=== PATIENT | male | born 1995 | race Caucasian/White ===

== ENCOUNTER 2019-11-15 13:43 | Inpatient (IN) | payer MEDICAID, MEDICARE, OTHER ==
[~2019-11-15] VITALS: Ht 172.7 cm; Wt 94.8 kg
[2019-11-15] MEDS ORDERED: DILT-32 PO (13:53)
[2019-11-15] MEDS ORDERED: PRED5TAB48 PO (13:53)
[2019-11-15] MEDS ORDERED: TACR1CAP PO ×2 (13:53)
--- NOTE | 2019-11-15 13:55 | NUR ---
PT BIB [facility] C/O HEADACHE, NAUSEA, VOMITING SINCE FRIDAY, WORSENING TODAY. NOTED HTN. RESP EVEN UNLABORED. SKIN WARM DRY. ABD SOFT NON-TENDER. IN ER BED 11.
[2019-11-15] MEDS ORDERED: DILTIAZEM HCL CD 240 MG PO STA (14:04)
[2019-11-15] MEDS ORDERED: DILTIAZEM HCL CD 180 MG PO ONE (14:09)
--- NOTE | 2019-11-15 14:44 | NUR ---
LUDIN DIAZ UNABLE TO DRAW BLOOD. DORITA, GARNETT MACHINE OPERATOR, AT BEDSIDE FOR SECOND ATTEMPT.
[2019-11-15 14:51] LABS: BASOPHILS # (AUTO) 0.1 /CMM (0.0-0.2); BASOPHILS % (AUTO) 0.7 % (0.0-2.0); EOSINOPHILS % (AUTO) 2.9 % (0.0-6.0); HEMATOCRIT 27 % (39-51); HEMOGLOBIN 8.7 g/dL (13.5-17.5); LYMPHOCYTES # (AUTO) 1.2 /CMM (0.8-4.8); LYMPHOCYTES % (AUTO) 16.4 % (20.0-44.0); MEAN CORPUSCULAR HGB CONC 33 g/dl (31.0-36.0); MEAN CORPUSCULAR VOLUME 84 fL (80-96); MONOCYTES # (AUTO) 0.5 /CMM (0.1-1.30); MONOCYTES % (AUTO) 7.3 % (2.0-12.0); NEUTROPHILS # (AUTO) 5.1 /CMM (1.8-8.9); NEUTROPHILS % (AUTO) 72.7 % (43.0-81.0); PLATELET COUNT (AUTO) 218 /CMM (150-450); RED BLOOD CELL COUNT(AUTO) 3.21 MIL/uL (4.5-6.0); WHITE BLOOD COUNT (AUTO) 7.1 K/uL (4.3-11.0)
--- NOTE | 2019-11-15 15:38 | NUR ---
asleep, easily arousable. family at bedside.
[2019-11-15 15:42] LABS: CALCIUM, SERUM 8.6 mg/dL (8.5-10.1); POTASSIUM 5.3 mmol/L (3.5-5.1)
[2019-11-15 15:46] LABS: CREATININE 28.5 mg/dL (0.6-1.3)
[2019-11-15 15:49] LABS: ALBUMIN 3.5 g/dL (3.4-5.0); BILIRUBIN,TOTAL 0.3 mg/dL (0.2-1.0); TOTAL PROTEIN, SERUM 7.8 g/dL (6.4-8.2)
--- NOTE | 2019-11-15 16:31 | NUR ---
CALLED RT FOR ABG
[2019-11-15] MEDS ORDERED: NICARDIPINE HCL 20 MG in IV D5W 192 ML IV STA (16:34)
[2019-11-15] MEDS ORDERED: NICARDIPINE IN DEXTROSE,ISO-OS 200 ML IV ONE (16:34)
--- NOTE | 2019-11-15 16:43 | NUR ---
RT AT BEDSIDE
--- NOTE | 2019-11-15 16:45 | NUR ---
PT NOW BECOMING NOTICEABLY SHORT OF BREATH WITH EXERTION. REPORTS THAT HE HAS HAD THIS SOB FOR A FEW DAYS.
[2019-11-15 16:52] LABS: ABG BASE EXCESS -21.6 mmol/L; ABG OXYGEN SATURATION 97.8 % (92.0-98.5); ABG PCO2 14.2 mmHg (35.0-45.0); ABG PH 7.161 (7.350-7.450); ABG PO2 137.2 mmHg (75.0-100.0); COHb 0.3 % (0.5-1.5); MetHb 0.7 % (0.0-1.5); O2Hb 96.8 % (94.0-97.0); SITE, ABG Right Radial; VENT MODE, BG room air
[2019-11-15] MEDS ORDERED: ONDANSETRON 4 MG TAB.RAPDIS SL ONE (17:00)
[2019-11-15] MEDS ORDERED: HYDROCODONE/APAP 5/325MG 1 EACH TABLET PO ONE (17:00)
--- NOTE | 2019-11-15 17:15 | NUR ---
MARSII PRE OWNED SALES CONSULTANT SUCCESSFULLY STARTED RIGHT EJ 20G AFTER 2 RNS UNABLE TO START IV.
[2019-11-15] MEDS ORDERED: Sodium Bicarbonate 150 MEQ in IV D5W 1,000 ML IV STA (17:25)
--- NOTE | 2019-11-15 17:28 | NUR ---
CALLED DR. ESCAMILLA'S OFFICE FOR NEPHOLOGY FROM [facility].
[2019-11-15] MEDS ORDERED: SODIUM BICARBONATE SYR 50 MEQ/50 ML DISP.SYRIN IV ONE ×2 (17:30)
--- NOTE | 2019-11-15 17:30 | NUR ---
PAGED [facility].
--- NOTE | 2019-11-15 17:30 | NUR ---
PT REQUESTED TO BE PLACED ON O2 DESPITE 100% SPO2. PLACED ON 2L VIA NC. CARDENE DRIP STARTED AT 5MG/HR.
[2019-11-15] MEDS ORDERED: LIDOCAINE 2% JEL UROJET 10 ML MM ONE ×2 (17:33→18:00)
[2019-11-15] MEDS ORDERED: SODIUM BICARBONATE SYR 50 MEQ/50 ML DISP.SYRIN ONE (17:33)
--- NOTE | 2019-11-15 17:39 | NUR ---
VU CATHETER STARTED BY DIMAS SWANSON PER DR PHIPPS WITH VERBAL ORDER FOR UROJET 10ML
--- NOTE | 2019-11-15 17:45 | NUR ---
SODIUM BICARB DRIP AND CARDENE DRIP ARE NOT IV COMPATIBLE. PT VERTY HARD STICK. CALLED NURSING SCUDDING INSPECTOR FOR PICC LINE, PER . PER MENA NURSING SCUDDING INSPECTOR NO PICC NURSE UNTIL 190. AWARE.
[2019-11-15] MEDS ORDERED: ONDANSETRON 4 MG TAB.RAPDIS ONE (18:12)
[2019-11-15] MEDS ORDERED: HYDROCODONE/APAP 5/325MG 1 EACH TABLET ONE (18:12)
--- NOTE | 2019-11-15 18:21 | NUR ---
CARDENE RATE INCREASED TO 7.5MG/HR
[2019-11-15] MEDS ORDERED: IV 1/2NS 1000 ML 1,000 ML IV PRN (19:02)
--- NOTE | 2019-11-15 19:15 | NUR ---
REPORT RECEIVED FROM HERON MATHEW FOR TYLER
--- NOTE | 2019-11-15 19:16 | NUR ---
PT APPEARS IN GREATER DISTRESS, MORE LABORED BREATHING AND PALE COLOR. APICAL PULSE BOUNDING. PT STATES HIS CHEST FEELS "LIKE I WAS RUNNING". PT 100% O2 ON ROOM AIR BUT O2 REAPPLIED PER PT REQUEST AT 2L VIA NC. DR PHIPPS NOTIFIED AND AT BEDSIDE TO EVALUATE PT.
--- NOTE | 2019-11-15 19:28 | NUR ---
CARDENE RATE DECREASED TO 5MG/HR D/T BP 124/50
[2019-11-15] MEDS ORDERED: MAG HYDROX/AL HYDROX/SIMETH 30 ML UDC PO PRN (19:30)
[2019-11-15] MEDS ORDERED: ONDANSETRON HCL/PF 4 MG/2 ML VIAL IVP PRN (19:30)
[2019-11-15] MEDS ORDERED: MAGNESIUM HYDROXIDE 30 ML UDC PO PRN (19:30)
[2019-11-15] MEDS ORDERED: ACETAMINOPHEN 325 MG TABLET PO PRN (19:30)
[2019-11-15] MEDS ORDERED: Z GUARD REMEDY 2 OZ OINT TP PRN (19:30)
--- NOTE | 2019-11-15 19:37 | NUR ---
PT SIGNED CONSENT FORM FOR PICC
[2019-11-15] MEDS ORDERED: LIDOCAINE 1%-EPI 1:100,000 20 ML VIAL ONE (20:11)
--- NOTE | 2019-11-15 20:41 | NUR ---
CARDENE DRIP STOPPED. BP 115/45
--- NOTE | 2019-11-15 20:56 | NUR ---
PT TRANSFERRED TO ROOM 262 IN STABLE CONDITION W ERT AND RN VIA ACLS TRANSPORT PROTOCOL
[2019-11-15 21:00] VITALS: BP 149/57
[2019-11-15] MEDS ORDERED: MANNITOL 12.5 GM/50 ML VIAL IV ONE (21:00)
--- NOTE | 2019-11-15 21:30 | NUR ---
INVENTORY ASSISTANT NOTE PT RECEIVED A/O X4 AND ABLE TO VERBALIZE NEEDS. ON ROOM AIR WITH SATURATION OF 100% AND ASKING FOR OXYGEN. BREATHING UNLABORED. DENIES PAIN OR HEADACHE AT THIS TIME. CARDENE DRIP RECEIVED OFF. SBP 140-150'S. TELE-ST. RIGHT EJ #20 CLEAN AND PATENT. L FEMORAL PERMACATH IN PLACE. DIALYSIS NURSE AT BEDSIDE. CONSENT SIGNED FOR DIALYSIS. VU CATHETER IN PLACE AND DRAINING BY GRAVITY. FAMILY AT BEDSIDE. CALL LIGHT WITHIN REACH.
[2019-11-15 22:00] VITALS: BP 139/64
[2019-11-15 22:15] VITALS: BP 130/59
[2019-11-15 22:30] VITALS: BP 136/59
[2019-11-15 22:45] VITALS: BP 141/71
[2019-11-15 23:00] VITALS: BP 142/65
[2019-11-16] VITALS (24 sets, daily range): BP systolic 143–181; BP diastolic 73–94
--- NOTE | 2019-11-16 00:30 | NUR ---
COMMUNICATION CONSULTANT NOTE PICC LINE NURSE AT BEDSIDE.
[2019-11-16] MEDS: HYDROCODONE/APAP 5/325MG 1 EACH TABLET PO PRN (03:34)
[2019-11-16 04:44] LABS: BASOPHILS # (AUTO) 0.1 /CMM (0.0-0.2); BASOPHILS % (AUTO) 0.8 % (0.0-2.0); EOSINOPHILS % (AUTO) 1.8 % (0.0-6.0); HEMATOCRIT 24 % (39-51); LYMPHOCYTES # (AUTO) 1.2 /CMM (0.8-4.8); LYMPHOCYTES % (AUTO) 19.6 % (20.0-44.0); MEAN CORPUSCULAR HGB CONC 33 g/dl (31.0-36.0); MEAN CORPUSCULAR VOLUME 84 fL (80-96); MONOCYTES # (AUTO) 0.7 /CMM (0.1-1.30); MONOCYTES % (AUTO) 12.2 % (2.0-12.0); NEUTROPHILS % (AUTO) 65.6 % (43.0-81.0); PLATELET COUNT (AUTO) 207 /CMM (150-450); RED BLOOD CELL COUNT(AUTO) 2.85 MIL/uL (4.5-6.0); WHITE BLOOD COUNT (AUTO) 6.1 K/uL (4.3-11.0)
[2019-11-16 05:09] LABS: CALCIUM, SERUM 8.2 mg/dL (8.5-10.1); MAGNESIUM 2.1 mg/dL (1.8-2.4); PHOSPHORUS 6.1 mg/dL (2.5-4.9)
[2019-11-16 05:10] LABS: CREATININE 19.7 mg/dL (0.6-1.3)
[2019-11-16 05:35] LABS: THYROID STIMULATING HORMONE 1.545 uIU/mL (0.358-3.74)
--- NOTE | 2019-11-16 07:30 | NUR ---
RNOPENING NOTES RECEIVED PATIENT RESTING IN BED, A/O X4, ABLE TP MAKE NEEDS KNOWN. PATIENT IS ON ROOM AIR, SATURATING WELL, NO SIGNS OF DISTRESS NOTED. PATIENT DOES NOT HAVE COMPLAINTS OF PAIN OR DISCOMFORT, ON TELE MONITOR WITH SR, HR IN THE 90S. VU CATHETER IS INTACT, NO URINE NOTED AT THE MOMENT. VITAL SIGNS ARE STABLE, BP IS ELEVATED WITH SYSTOLIC IN THE 160S, MD IS AWARE. NO NEW ORDERS AT THE MOMENT, MD WILL "LOOK INTO IT." MERVAT PICC LINE IS INTACT, PATENT AND FLUSHED WELL, NO S/S OF INFECTION NOTED. PATIENT SAFETY IS MAINTAINED, CALL LIGHT WITHIN REACH, WILL CONTINUE TO MONITOR CLOSELY.
[2019-11-16 08:08] LABS: ABG BASE EXCESS -6.4 mmol/L; ABG OXYGEN SATURATION 88.9 % (92.0-98.5); ABG PCO2 25.2 mmHg (35.0-45.0); ABG PH 7.441 (7.350-7.450); ABG PO2 52.1 mmHg (75.0-100.0); AaDO2 67.5 mmHg; COHb 0.1 % (0.5-1.5); MetHb 0.8 % (0.0-1.5); O2Hb 88.1 % (94.0-97.0); SITE, ABG Right Radial; VENT MODE, BG ROOM AIR
[2019-11-16] MEDS: CLONIDINE HCL 0.1 MG TABLET PO PRN ×2 (08:56→21:27)
--- NOTE | 2019-11-16 11:38 | NUR ---
RN NOTES RECEIVED A CALL FROM ULTRASOUND. PATIENT HAS AN ORDER FOR NEEDLE GUIDED BIOPSY W/ ULTRASOUND. PER US TECH, ORDERED STAT INR, PT, PTT. CONSENT SIGNED BY THE PATIENT AND PLACED INTO THE CHART. EXPLAINED THE PROCEDURE TO THE PATIENT. SAFETY MAINTAINED, CALL LIGHT WITHIN REACH, WILL CONTINUE TO MONITOR.
[2019-11-16] MEDS: NS 0.9% IV SCH (12:08)
[2019-11-16] MEDS: METHYLPREDNISOLONE SOD SUCC IV SCH (12:08)
--- NOTE | 2019-11-16 14:00 | NUR ---
ICU/RECOVERY OPERATOR HELPER OF CARE REPORT GIVEN BY NURSE NOVOA. PT ENDORSED TO ME TO CONTINUE CARE.
--- NOTE | 2019-11-16 14:42 | NUR ---
LEA was informed by transplant case manager Adri regarding family requesting list of psychologists. X RAY DEVELOPER printed out list of psychologists that accept Medicare and provided it t transplant case manager Adri for the pt.
--- NOTE | 2019-11-16 15:30 | NUR ---
ICU/INTERNAL CONSULTANT DIALYSIS TREATMENT STARTED, ON GOING MONITORING.
--- NOTE | 2019-11-16 17:28 | NUR ---
ICU/RN CONSENTS - OBTAINED CONSENTS FOR ULTRASOUND GUIDED AND CT GUIDED NEEDLE BIOPSY OF KIDNEY AND ANESTHESIA/SEDATION OBTAINED FROM PT. ALSO PT WILL BRING HOME MED PROGRAFF FOR AM AND PM DOSES. PHARMACY AWARE.
--- NOTE | 2019-11-16 17:45 | NUR ---
ICU/NETWORK ANALYST - COMPLETED DIALYSIS COMPLETED, REMOVED 1.5L. PT TOLERATED PROCEDURE. MONITORING CONTINUED.
--- NOTE | 2019-11-16 19:30 | NUR ---
ADDING MACHINE MECHANIC NOTES RECEIVED PATIENT IN BED, AWAKE, A/O X4, ABLE TO VERBALIZE NEEDS. PATIENT DENIES ANY PAIN OR DISCOMFORT. BEDSIDE TELEMETRY MONITORING SHOWS SR, HR = 78 BPM. VU CATHETER NOTED PATENT AND INTACT, DRAINING MINIMAL AMOUNT OF PINK TINGED URINE TO BAG. LEFT ARM AV FISTULA WITH +BRUIT/THRILL, LEFT FEMORAL HD CATH INTACT, DRESSING CLEAN AND DRY. MERVAT PICC PATENT AND INTACT, ALL PORTS FLUSHED WITH NS, NOTED WITH GOOD BLOOD RETURN. PLAN OF CARE DISCUSSED WITH THE PATIENT, WHOM VERBALIZES UNDERSTANDING. WILL MONITOR CLOSELY
--- NOTE | 2019-11-16 19:36 | NUR ---
ICU/RN AM SHIFT CLOSING NOTES ALL NEEDS MET. NO ACUTE CHANGE OF CONDITION NOTED SINCE PT WAS ENDORSED TO CONTINUE CARE. PT ENDORSED TO PM NURSE TO CONTINUE CARE. CL WITHIN REACHED AND SAFETY MAINTAINED.
--- NOTE | 2019-11-16 21:00 | NUR ---
APPRENTICE INSTRUMENT TECHNICIAN NOTES FAMILY MEMBERS AT BEDSIDE TO VISIT DELIVER HOME MEDICATION TACROLIMUS. MEDICATION DOCUMENTED PER PROTOCOL AND SENT TO PHARMACY.
[2019-11-16] MEDS: PROGRAF 1 MG PO SCH (21:25)
[2019-11-16] MEDS ORDERED: TACROLIMUS ANHYDROUS 1 MG CAPSULE PO SCH (22:00)
[2019-11-17] VITALS (24 sets, daily range): BP systolic 136–187; BP diastolic 66–102
[2019-11-17] MEDS: CLONIDINE HCL 0.1 MG TABLET PO PRN (02:37)
[2019-11-17 04:51] LABS: BASOPHILS % (AUTO) 0.2 % (0.0-2.0); HEMATOCRIT 24 % (39-51); LYMPHOCYTES # (AUTO) 0.3 /CMM (0.8-4.8); LYMPHOCYTES % (AUTO) 10.6 % (20.0-44.0); MEAN CORPUSCULAR HGB CONC 33 g/dl (31.0-36.0); MEAN CORPUSCULAR VOLUME 83 fL (80-96); MONOCYTES % (AUTO) 1.3 % (2.0-12.0); NEUTROPHILS # (AUTO) 2.6 /CMM (1.8-8.9); NEUTROPHILS % (AUTO) 87.9 % (43.0-81.0); PLATELET COUNT (AUTO) 144 /CMM (150-450); RED BLOOD CELL COUNT(AUTO) 2.92 MIL/uL (4.5-6.0)
[2019-11-17 05:03] LABS: CALCIUM, SERUM 8.8 mg/dL (8.5-10.1); MAGNESIUM 2.2 mg/dL (1.8-2.4); PHOSPHORUS 6.3 mg/dL (2.5-4.9)
[2019-11-17 05:07] LABS: CREATININE 15.9 mg/dL (0.6-1.3)
--- NOTE | 2019-11-17 06:19 | NUR ---
EARTH MOVING MACHINE OPERATOR NOTES BP TRENDING HIGH, LATEST 179/98, DESPITE ADMINISTRATION OF CLONIDINE @ 0230, NEXT DOSE SCHEDULED EARLY 829. DR BARLOW NOTIFIED, WITH ORDER FOR HYDRALAZINE IV 10MG Q6HR FOR BP. WILL ADMINISTER AND MONITOR CLOSELY
[2019-11-17] MEDS: hydrALAZINE HCL IV 20 MG VIAL IV PRN ×2 (06:24→22:00)
--- NOTE | 2019-11-17 07:00 | NUR ---
Received patient asleep in bed. Not in any form of distress. SR no ectopy on monitor technician. On O2 per NC @ 2L min. O2 sat 100%. NPO since midnight for Renal Guided Biopsy today. Also, awaiting bed in [facility] for transfer (possible kidney transplant rejection). Patient is also for hemodialysis today.
--- NOTE | 2019-11-17 07:22 | NUR ---
CADDY PACKER NOTES PATIENT RESTING IN BED, APPEARS COMFORTABLE. BP DOWN TO 154/71, HYDRALAZINE EFFECTIVE. PATIENT NPO SINCE [place], FOR SCHEDULED US AND CT GUIDED NEEDLE BIOPSY OF KIDNEY (TRANSPLANTED). PATIENT ENDORSED TO THE AM SHIFT NURSE FOR CONTINUITY OF CARE
[2019-11-17] MEDS ORDERED: TACROLIMUS ANHYDROUS 1 MG CAPSULE PO SCH (09:00)
[2019-11-17] MEDS ORDERED: methylPREDNISolone SOD SUCC 125 MG/2ML VIAL IV SCH (09:00)
--- NOTE | 2019-11-17 09:21 | NUR ---
WAITING FOR RN TO FIND OUT IF PATIENT WILL BE TRANSFERRED TO [facility] OR WILL STAY HERE. KIDNEY BIOPSY ON HOLD FOR NOW
[2019-11-17] MEDS: DILTIAZEM HCL CD 120 MG PO SCH (09:42)
[2019-11-17] MEDS: NS 0.9% IV SCH (09:43)
[2019-11-17] MEDS: AMLODIPINE BESYLATE 5 MG TABLET PO SCH (09:43)
[2019-11-17] MEDS: METHYLPREDNISOLONE SOD SUCC IV SCH (09:43)
--- NOTE | 2019-11-17 11:09 | NUR ---
Texted Dr. Arce to confirm if renal guided biopsy needs to be done today or it can be done as outpatient procedure because radiology has problem in contacting and holding the pathologist for the said procedure. Also, FRANK Blackman texted earlier at 0910 to clarify about the procedure, she texted back that I should clarify it with Dr Shaffer or Dr. Vizcaino. Patient is awaiting bed at [facility]. For the meantime patient can be transferred to Telemetry unit if stable per FRANK Blackman. Awaiting for Dr. Arce or Dr. Vizcaino to reply.
--- NOTE | 2019-11-17 12:40 | NUR ---
Dr. French spoke with charge nurse Levon Morse and cancelled renal guided biopsy. Procedure [facility] done outpatient [facility].
--- NOTE | 2019-11-17 13:20 | NUR ---
NPO cancelled and renal diet ordered.
[2019-11-17] MEDS: PROGRAF 1 MG PO SCH ×2 (13:38→21:58)
--- NOTE | 2019-11-17 14:00 | NUR ---
Patient downgraded to Telemetry. Report given to Vicki Mina RN with all questions answered.
[2019-11-17] MEDS ORDERED: HEPARIN SODIUM, PORCINE 1000 UNIT/1 ML VIAL IV ONE (18:00)
--- NOTE | 2019-11-17 19:00 | NUR ---
pt remained stale, needs met, diet ordered and dinner provided, report given to rn shift mgr nurse in [place] pt still in ICU awaiting HD to be finished, pt will go to room 113/1. mother at bedside aware.
--- NOTE | 2019-11-17 21:32 | NUR ---
RN OPENING NOTES: Pt transferred from ICU via gurney accompanied by 2 nurses. Pt awake, A&Ox4. Finished dialysis in ICU, 1500mL out. On tele monitor showing sinus rhythm. Has right UA PICC, flushed and patent. Dressing c/d/i. Has left arm AV fistula that does not work and a left femoral HD cath. Has kidd cath, patent and draining pink tinged urine. Patient changed, skin check done, skin intact. On renal diet. Vitals: BP 181/91, P 95, RR 20, SaO2 98%, T 97.9. Hydralazine PRN administered as ordered for SBP > 150. Denies pain at this time. Safety measures in place. Bed in lowest and locked position, side rails up x2, call light within reach. Will continue to monitor.
--- NOTE | 2019-11-17 21:40 | NUR ---
ICU/STRUCTURAL STEEL TRADES WORKER PT WAS TRANSFERRED TO ROOM 113-1, WITH ACLS PRECAUTIONS. 1500ML WAS TAKEN OFF FROM HD.
[2019-11-18] VITALS: BP 157/77
[2019-11-18 04:00] VITALS: BP 153/86
[2019-11-18 06:17] LABS: HEMATOCRIT 25 % (39-51); HEMOGLOBIN 8.4 g/dL (13.5-17.5); LYMPHOCYTES # (AUTO) 0.4 /CMM (0.8-4.8); LYMPHOCYTES % (AUTO) 4.2 % (20.0-44.0); MEAN CORPUSCULAR HGB CONC 34 g/dl (31.0-36.0); MEAN CORPUSCULAR VOLUME 83 fL (80-96); MONOCYTES # (AUTO) 0.2 /CMM (0.1-1.30); MONOCYTES % (AUTO) 2.7 % (2.0-12.0); NEUTROPHILS # (AUTO) 8.1 /CMM (1.8-8.9); NEUTROPHILS % (AUTO) 93.1 % (43.0-81.0); PLATELET COUNT (AUTO) 163 /CMM (150-450); WHITE BLOOD COUNT (AUTO) 8.7 K/uL (4.3-11.0)
[2019-11-18 06:46] LABS: CALCIUM, SERUM 8.8 mg/dL (8.5-10.1); MAGNESIUM 2.2 mg/dL (1.8-2.4); POTASSIUM 4.1 mmol/L (3.5-5.1)
--- NOTE | 2019-11-18 06:58 | NUR ---
RN CLOSING NOTES: Pt resting in bed, A&Ox4. On tele monitor showing sinus rhythm. No respiratory distress noted. No acute changes noted during shift. Has right UA PICC line, patent and flushed. Dressing c/d/i. Has left femoral HD cath and left arm AV fistula. Has kidd cath, patent and draining urine. Safety measures in place. Bed in lowest and locked position, side rails up x2, call light within reach.
[2019-11-18 07:07] LABS: CREATININE 11.8 mg/dL (0.6-1.3)
--- NOTE | 2019-11-18 07:10 | NUR ---
CERTIFIED PERSONAL FINANCE COUNSELOR NOTES RECEIVED PATIENT AOX4 , NOT IN ACUTE DISTRESS , SPO2 OF 100% VIA RA , DENIES SOB , COMPLAINS OF MILD PAIN AT CHEST AREA 12/16 , WILL GIVE PRN PAIN MEDICATIONS , FC DRAINING VIA GRAVITY , MERVAT PICC LINE PATENT AND INTACT , L FEMORAL HD CATH IN PLACE , L ARM AV FISTULA WITH BRUIT AND THRILL , ALL NEEDS ATTENDED , BED ON LOW AND LOCKED POSITION ,SIDE RAILS X2 ,CALL LIGHT WITHIN REACH , WILL CONTINUE TO MONITOR
[2019-11-18 08:00] VITALS: BP 151/78
--- NOTE | 2019-11-18 08:00 | NUR ---
INFANT LEAD TEACHER NOTES SEEN AND EVALUATED BY DR GARCIA , DISCUSSED LABS , PT VS AND STATUS , PENDING [facility] TRANSFER OR DISCHARGE HOME , AWARE
[2019-11-18] MEDS: NS 0.9% IV SCH (08:26)
[2019-11-18] MEDS: METHYLPREDNISOLONE SOD SUCC IV SCH (08:26)
[2019-11-18] MEDS: DILTIAZEM HCL CD 120 MG PO SCH (08:26)
[2019-11-18] MEDS: PROGRAF 1 MG PO SCH ×2 (08:26→21:20)
[2019-11-18] MEDS: AMLODIPINE BESYLATE 5 MG TABLET PO SCH (08:26)
[2019-11-18] MEDS: HYDROCODONE/APAP 5/325MG 1 EACH TABLET PO PRN ×2 (08:32→20:17)
[2019-11-18 12:00] VITALS: BP 140/68
[2019-11-18 16:00] VITALS: BP 133/52
--- NOTE | 2019-11-18 18:53 | NUR ---
LEATHER ETCHER NOTES PATIENT STABLE , AOX4 , NOT IN ACUTE DISTRESS , SPO2 OF 100% VIA RA , NO SOB DISTRESS AT THIS TIME, , FC DRAINING VIA GRAVITY , MERVAT PICC LINE PATENT AND INTACT , L FEMORAL HD CATH IN PLACE , L ARM AV FISTULA WITH BRUIT AND THRILL , ALL NEEDS ATTENDED , BED ON LOW AND LOCKED POSITION ,SIDE RAILS X2 ,CALL LIGHT WITHIN REACH , REORT GIVEN TO FELICE FOR CONTINUITY OF CARE
--- NOTE | 2019-11-18 19:10 | NUR ---
RN OPENING NOTES: Received pt awake in bed A&Ox4. On room air, tolerating well. No respiratory distress noted. Has right upper arm PICC line, patent and flushed, dressing c/d/i. Has left femoral hd cath and left arm av fistula. Has kidd cath, patent and draining urine. Safety measures in place. Bed in lowest and locked position, side rails up x2, call light within reach. Will continue to monitor.
[2019-11-18 20:00] VITALS: BP 149/77
[2019-11-19 04:00] VITALS: BP 147/82
--- NOTE | 2019-11-19 06:51 | NUR ---
RN CLOSING NOTES: Pt resting in bed, A&Ox4. On room air. No respiratory distress noted. No acute changes noted during shift. Right UA PICC flushed and patent. Dressing c/d/i. Has left femoral HD cath and old left arm AV fistula. Nunn patent and draining urine. All meds administered as ordered. No complaints of pain at this time. Safety measures in place. Bed in lowest and locked position, side rails up x2, call light within reach. Will endorse to AM nurse for TYLER.
--- NOTE | 2019-11-19 07:29 | NUR ---
RN OPENING NOTES RECEIVED PATIENT RESTING IN BED, AWAKE, A/OX4, VERBALLY RESPONSIVE AND ABLE TO MAKE NEEDS KNOWN. DENIES ANY PAIN OR DISCOMFORT .ON ROOM AIR, SATURATING WELL, NO SOB/ RESPIRATORY DISTRESS NOTED. NOTED OF L AVF NO SIGNS OF BLEEDING, IV ACCESS ON R UA PICC LINE, INTACT, PATENT AND FLUSHED WELL, ALSO NOTED OF FEMORAL HD CATH, NO BLEEDING NOTE. WITH VU CATHETER, NOTED OF RALF COLOR URINE WITH 50 ML OUTPUT ON THE BAG. SAFETY MEASURES IN PLACE; CALL LIGHT WITHIN REACH, SIDE RAILS UP X2, HOB ELEVATED, BED LOCKED AND IN LOWEST POSITION. WILL CONT TO MONITOR PT CLOSELY.
[2019-11-19 08:00] VITALS: BP 155/95
[2019-11-19] MEDS: PROGRAF 1 MG PO SCH ×2 (08:19→22:03)
[2019-11-19] MEDS: AMLODIPINE BESYLATE 5 MG TABLET PO SCH (08:20)
[2019-11-19] MEDS: DILTIAZEM HCL CD 120 MG PO SCH (08:20)
[2019-11-19] MEDS: METHYLPREDNISOLONE SOD SUCC IV SCH (08:38)
[2019-11-19] MEDS: NS 0.9% IV SCH (08:38)
[2019-11-19 09:07] LABS: HEMATOCRIT 26 % (39-51); HEMOGLOBIN 8.7 g/dL (13.5-17.5); LYMPHOCYTES # (AUTO) 0.4 /CMM (0.8-4.8); LYMPHOCYTES % (AUTO) 4.5 % (20.0-44.0); MEAN CORPUSCULAR HGB CONC 33 g/dl (31.0-36.0); MEAN CORPUSCULAR VOLUME 84 fL (80-96); MONOCYTES # (AUTO) 0.2 /CMM (0.1-1.30); MONOCYTES % (AUTO) 2.2 % (2.0-12.0); NEUTROPHILS % (AUTO) 93.3 % (43.0-81.0); PLATELET COUNT (AUTO) 191 /CMM (150-450); RED BLOOD CELL COUNT(AUTO) 3.13 MIL/uL (4.5-6.0); WHITE BLOOD COUNT (AUTO) 9.6 K/uL (4.3-11.0)
[2019-11-19 09:09] LABS: CALCIUM, SERUM 8.8 mg/dL (8.5-10.1); MAGNESIUM 2.1 mg/dL (1.8-2.4); POTASSIUM 4.3 mmol/L (3.5-5.1)
[2019-11-19] MEDS ORDERED: AMLO5TAB9 PO (13:23)
[2019-11-19] MEDS ORDERED: CLON0.1T14 PO (13:23)
[2019-11-19 16:00] VITALS: BP 154/86
--- NOTE | 2019-11-19 17:45 | NUR ---
pending discharge no bed available in [facility] per cm,nursing sup aware.
--- NOTE | 2019-11-19 19:25 | NUR ---
RN CLOSING NOTES PATIENT IN BED, RESTING COMFORTABLY. DENIES ANY PAIN OR DISCOMFORT AT THE MOMENT. ON ROOM AIR, SATURATING WELL. IN NO APPARENT DISTRESS NOTED. HAD DIALYSIS TODAY TOLERATED WELL, OUTPUT OF 2L. PENDING DC, PER COMMUNITY REPRESENTATIVE STILL WAITING FOR ROOM. KEPT CLEAN AND DRY. ALL NEEDS MET. SAFETY MEASURES IN PLACED, BED IN LOWEST POSITIONED, LOCKED. CALL LIGHT WITHIN REACH. ENDORSED TO PM RN FOR CO. C
[2019-11-19 22:00] VITALS: BP 142/75
[2019-11-20 04:00] VITALS: BP 187/97
[2019-11-20] MEDS: CLONIDINE HCL 0.1 MG TABLET PO PRN (04:43)
--- NOTE | 2019-11-20 06:38 | NUR ---
MARTIN/RN PATIENT IS SLEEPING, EASILY AROUSABLE, NO DISTRESS NOTE, BP 133/69 AT THIS TIME, ALL NEEDS ATTENDED AT THIS TIME, WILL CONTINUE TO MONITOR.
[2019-11-20 06:40] VITALS: BP 133/69
[2019-11-20 07:25] LABS: HEMATOCRIT 23 % (39-51); HEMOGLOBIN 7.9 g/dL (13.5-17.5); LYMPHOCYTES # (AUTO) 0.4 /CMM (0.8-4.8); LYMPHOCYTES % (AUTO) 7.5 % (20.0-44.0); MEAN CORPUSCULAR HGB CONC 34 g/dl (31.0-36.0); MEAN CORPUSCULAR VOLUME 82 fL (80-96); MONOCYTES # (AUTO) 0.2 /CMM (0.1-1.30); MONOCYTES % (AUTO) 3.8 % (2.0-12.0); NEUTROPHILS % (AUTO) 88.7 % (43.0-81.0); PLATELET COUNT (AUTO) 176 /CMM (150-450); RED BLOOD CELL COUNT(AUTO) 2.85 MIL/uL (4.5-6.0); WHITE BLOOD COUNT (AUTO) 5.6 K/uL (4.3-11.0)
--- NOTE | 2019-11-20 07:30 | NUR ---
patient resting n bed - no s/s of distress- safety precautions in place- received bedside sbar- will continue to monitor report and record
[2019-11-20 07:35] LABS: CALCIUM, SERUM 8.4 mg/dL (8.5-10.1); PHOSPHORUS 6.2 mg/dL (2.5-4.9); POTASSIUM 4.5 mmol/L (3.5-5.1)
[2019-11-20 07:46] LABS: CREATININE 11.2 mg/dL (0.6-1.3)
[2019-11-20 08:00] VITALS: BP_SYST 138; BP_SYST 158; BP_DIAS 78
[2019-11-20] MEDS: METHYLPREDNISOLONE SOD SUCC IV SCH (09:43)
[2019-11-20] MEDS: NS 0.9% IV SCH (09:43)
[2019-11-20] MEDS: AMLODIPINE BESYLATE 5 MG TABLET PO SCH (09:44)
[2019-11-20] MEDS: DILTIAZEM HCL CD 120 MG PO SCH (09:44)
[2019-11-20] MEDS: PROGRAF 1 MG PO SCH ×2 (09:47→22:20)
[2019-11-20] MEDS: HYDROCODONE/APAP 5/325MG 1 EACH TABLET PO PRN (10:44)
--- NOTE | 2019-11-20 11:56 | NUR ---
patient resting in room- no complaints concerns or issues- vitals stable - tolerating diet- safety precautions in place- will continue to monitor report and record
[2019-11-20 16:00] VITALS: BP_SYST 126; BP_SYST 139; BP_DIAS 67; BP_DIAS 68
--- NOTE | 2019-11-20 18:41 | NUR ---
justine has had a restful day- [facility] reached out to get info in regards to discharge summary - requested a fax- as soon as a bed available - he will be transferred-kidd removed- urinating minimal- safety precautions in place- will continue to monitor report and record -provide bedside sbar
--- NOTE | 2019-11-20 19:15 | NUR ---
MS RN NOTES RECEIVED PT IN BED AWAKE AND ABLE TO MAKE NEEDS KNOWN. PT A/O X3. PT DENIES PAIN AT THIS TIME. RESPIRATIONS EVEN AND UNLABORED WITH NO S/S OF ACUTE DISTRESS OR SOB NOTED. PT NOTED WITH L AVF NO SIGNS OF BLEEDING, IV ACCESS ON R UA PICC LINE, INTACT, PATENT AND FLUSHED WELL, PAT ALSO WITH FEMORAL HD CATH, NO BLEEDING NOTED. SAFETY MEASURES IN PLACE WITH BED IN LOWEST LOCKED POSITION WITH SIDE RAILS UP X2. CALL LIGHT WITHIN REACH. WILL CONTINUE TO MONITOR.
[2019-11-20 20:00] VITALS: BP 164/89
[2019-11-20] MEDS: ZOLPIDEM TARTRATE 5 MG TABLET PO PRN (23:38)
[2019-11-21] VITALS: BP 144/73
[2019-11-21] MEDS: HYDROCODONE/APAP 5/325MG 1 EACH TABLET PO PRN ×2 (01:11→08:05)
[2019-11-21 04:00] VITALS: BP 143/75
--- NOTE | 2019-11-21 07:20 | NUR ---
MS RN OPENING NOTE PATIENT IN BED RESTING COMFORTABLY. PATIENT IN NO ACUTE DISTRESS. NO SOB NOTED. PATIENT BREATHING IS EVEN AND UNLABORED. PATIENT STATES IN NO PAIN AT THIS TIME. SAFETY PRECAUTIONS IN PLACE. PATIENT BED IS LOCKED AND IN LOWEST POSITION. CALL LIGHT WITHIN REACH. WILL CONTINUE TO MONITOR.
--- NOTE | 2019-11-21 07:30 | NUR ---
MS RN NOTES PT IN BED AWAKE AND ABLE TO MAKE NEEDS KNOWN. PT A/O X3. PT DENIES PAIN AT THIS TIME. RESPIRATIONS EVEN AND UNLABORED WITH NO S/S OF ACUTE DISTRESS OR SOB NOTED THROUGHOUT SHIFT. PT NOTED WITH L AVF NO SIGNS OF BLEEDING, IV ACCESS ON R UA PICC LINE, INTACT, PATENT AND FLUSHED WELL, PAT ALSO WITH FEMORAL HD CATH, NO BLEEDING NOTED. SAFETY MEASURES IN PLACE WITH BED IN LOWEST LOCKED POSITION WITH SIDE RAILS UP X2. CALL LIGHT WITHIN REACH. WILL ENDORSE TO ONCOMING NURSE FOR TYLER.
[2019-11-21 07:31] LABS: BASOPHILS % (AUTO) 0.1 % (0.0-2.0); HEMATOCRIT 26 % (39-51); HEMOGLOBIN 8.6 g/dL (13.5-17.5); LYMPHOCYTES # (AUTO) 0.5 /CMM (0.8-4.8); LYMPHOCYTES % (AUTO) 5.6 % (20.0-44.0); MEAN CORPUSCULAR HGB CONC 33 g/dl (31.0-36.0); MEAN CORPUSCULAR VOLUME 83 fL (80-96); MONOCYTES # (AUTO) 0.3 /CMM (0.1-1.30); MONOCYTES % (AUTO) 3.2 % (2.0-12.0); NEUTROPHILS # (AUTO) 7.8 /CMM (1.8-8.9); NEUTROPHILS % (AUTO) 91.1 % (43.0-81.0); PLATELET COUNT (AUTO) 202 /CMM (150-450); RED BLOOD CELL COUNT(AUTO) 3.14 MIL/uL (4.5-6.0); WHITE BLOOD COUNT (AUTO) 8.6 K/uL (4.3-11.0)
[2019-11-21 07:48] LABS: CALCIUM, SERUM 8.8 mg/dL (8.5-10.1); MAGNESIUM 2.1 mg/dL (1.8-2.4); PHOSPHORUS 7.6 mg/dL (2.5-4.9); POTASSIUM 5.3 mmol/L (3.5-5.1)
[2019-11-21 07:52] LABS: CREATININE 12.8 mg/dL (0.6-1.3)
[2019-11-21 08:00] VITALS: BP 173/92
[2019-11-21] MEDS: AMLODIPINE BESYLATE 5 MG TABLET PO SCH (08:04)
[2019-11-21] MEDS: DILTIAZEM HCL CD 120 MG PO SCH (08:04)
[2019-11-21] MEDS: PROGRAF 1 MG PO SCH ×2 (08:04→21:31)
[2019-11-21 09:30] VITALS: BP 144/79
--- NOTE | 2019-11-21 11:16 | NUR ---
MS RN NOTE BUN 107, CRE 12.8. NILES MARIE MADE AWARE.
--- NOTE | 2019-11-21 14:33 | NUR ---
MS RN NOTE PATIENT TOLERATED HEMODIALYSIS WELL, PER ECHO RN 2L TAKEN OUT.
[2019-11-21 16:00] VITALS: BP 151/85
--- NOTE | 2019-11-21 18:38 | NUR ---
MS RN CLOSING NOTE PATIENT IN BED RESTING COMFORTABLY. PATIENT IN NO ACUTE DISTRESS. NO SOB NOTED. PATIENT BREATHING IS EVEN AND UNLABORED. PATIENT IN NO PAIN AT THIS TIME. PATIENT KEPT CLEAN, DRY, AND COMFORTABLE THROUGHOUT MY SHIFT. NEEDS AND CONCERNS ADDRESSED. SAFETY PRECAUTIONS IN PLACE. PATIENT BED IS LOCKED AND IN LOWEST POSITION. CALL LIGHT WITHIN REACH. WILL ENDORSE CARE TO PM SHIFT FOR TYLER.
--- NOTE | 2019-11-21 19:47 | NUR ---
MS RN OPENING NOTES PATIENT RECEIVED RESTING IN BED A/O X 3. STABLE ON RA WITH BREATHING EVEN AND UNLABORED, NO SOB NOTED. NO SIGNS OF ACUTE DISTRESS. NO COMPLAINTS OF PAIN OR DISCOMFORT. PICC NEETU LOCATED ON MERVAT PATENT AND INTACT, LEFT FEMORAL PERMACATH, AND L UA FISTULA. SAFETY PRECAUTIONS IN PLACE WITH BED IN LOWEST POSITION, CALL LIGHT WITHIN REACH, AND SIDE RAILS UP. WILL CONTINUE TO MONITOR THROUGHOUT THE NIGHT.
[2019-11-21 20:00] VITALS: BP 187/89
[2019-11-21] MEDS: CLONIDINE HCL 0.1 MG TABLET PO PRN (20:27)
--- NOTE | 2019-11-21 20:34 | NUR ---
MS RN NOTES PRN CLONIDING 0.1 MG ADMINISTERED DUE TO BLOOD PRESSURE OF 187/98. WILL CONTINUE TO MONITOR.
[2019-11-21] MEDS: ZOLPIDEM TARTRATE 5 MG TABLET PO PRN (23:28)
[2019-11-22 04:00] VITALS: BP 153/89
[2019-11-22] MEDS: HYDROCODONE/APAP 5/325MG 1 EACH TABLET PO PRN (04:42)
--- NOTE | 2019-11-22 06:25 | NUR ---
MS RN CLOSING NOTES PATIENT RESTING IN BED A/O X 3. STABLE ON RA WITH BREATHING EVEN AND UNLABORED, NO SOB NOTED. NO SIGNS OF ACUTE DISTRESS. NO COMPLAINTS OF PAIN OR DISCOMFORT. PICC NEETU LOCATED ON MERVAT PATENT AND INTACT, LEFT FEMORAL PERMACATH, AND L UA FISTULA. SAFETY PRECAUTIONS IN PLACE WITH BED IN LOWEST POSITION, CALL LIGHT WITHIN REACH, AND SIDE RAILS UP. ALL NEEDS ATTENDED TO. PATIENT KEPT CLEAN AND DRY THROUGHOUT THE NINGHT. WILL ENDORSE TO ONCOMING SHIFT ABOUT TYLER.
--- NOTE | 2019-11-22 07:00 | NUR ---
MS RN OPENING NOTES PATIENT RECEIVED RESTING IN BED A/O X 3. STABLE ON RA WITH BREATHING EVEN AND UNLABORED, NO SOB NOTED. NO SIGNS OF ACUTE DISTRESS. NO COMPLAINTS OF PAIN OR DISCOMFORT. PICC NEETU LOCATED ON MERVAT PATENT AND INTACT, LEFT FEMORAL PERMACATH, AND L UA FISTULA. SAFETY PRECAUTIONS IN PLACE WITH BED IN LOWEST POSITION, CALL LIGHT WITHIN REACH, AND SIDE RAILS UP. WILL CONTINUE TO MONITOR. ALL MEASURES TAKEN TO ENSURE CLIENT SAFETY. FISTULA HAS PALPABLE THRILL AND BRUIT. NO DIALYSIS TODAY. POSSIBLE DISCHARGE TO [facility] TO CONTINUE CARE. AWAITING CALL FROM [facility] BED CONTROL.
[2019-11-22 08:00] VITALS: BP 172/97
[2019-11-22 08:47] LABS: HEMATOCRIT 28 % (39-51); HEMOGLOBIN 9.1 g/dL (13.5-17.5); LYMPHOCYTES # (AUTO) 0.8 /CMM (0.8-4.8); LYMPHOCYTES % (AUTO) 5.9 % (20.0-44.0); MEAN CORPUSCULAR HGB CONC 32 g/dl (31.0-36.0); MEAN CORPUSCULAR VOLUME 82 fL (80-96); MONOCYTES # (AUTO) 1.1 /CMM (0.1-1.30); MONOCYTES % (AUTO) 7.6 % (2.0-12.0); NEUTROPHILS # (AUTO) 12.3 /CMM (1.8-8.9); NEUTROPHILS % (AUTO) 86.5 % (43.0-81.0); PLATELET COUNT (AUTO) 252 /CMM (150-450); RED BLOOD CELL COUNT(AUTO) 3.45 MIL/uL (4.5-6.0); WHITE BLOOD COUNT (AUTO) 14.3 K/uL (4.3-11.0)
[2019-11-22 08:56] LABS: POTASSIUM 4.9 mmol/L (3.5-5.1)
[2019-11-22] MEDS: PROGRAF 1 MG PO SCH ×2 (09:19→21:31)
[2019-11-22 09:20] LABS: CALCIUM, SERUM 8.6 mg/dL (8.5-10.1); MAGNESIUM 2.1 mg/dL (1.8-2.4); PHOSPHORUS 7.7 mg/dL (2.5-4.9)
[2019-11-22] MEDS: DILTIAZEM HCL CD 120 MG PO SCH (09:20)
[2019-11-22] MEDS: AMLODIPINE BESYLATE 5 MG TABLET PO SCH (09:21)
[2019-11-22 09:24] LABS: CREATININE 11.2 mg/dL (0.6-1.3)
--- NOTE | 2019-11-22 13:00 | NUR ---
MS RN NOTES BED CONTROL FROM [facility] CALLED. REPORT GIVEN TO BED CONTROL. NO NEW UPDATES AT THIS TIME ON WHEN DISCHARGE WILL HAPPEN. THIS INFORMATION WAS EXPLAINED TO THE PATIENT.
--- NOTE | 2019-11-22 14:00 | NUR ---
MS RN NOTES REPORT GIVEN TO [facility]PH[facility]Y [facility] AND TRANSPLANT TEAM. RECENT MEDICAL CONDITION PROVIDED, LABS, AND INFORMATION REQUESTED. NO NEW INFORMATION ON BED AVAILABILITY AT [facility]. PATIENT UPDATED WITH THIS INFORMATION.
[2019-11-22 16:00] VITALS: BP 148/77
--- NOTE | 2019-11-22 19:00 | NUR ---
MS RN CLOSING NOTE PATIENT IS IN BED RESTING COMFORTABLY, NO S/S OF DISTRESS, NO NEW ACUTE EVENTS. BED IN LOWEST POSITION, CALL LIGHT WITHIN REACH, ALL MEASURES TAKEN TO ENSURE CLIENT SAFETY. MEDICATIONS GIVEN ORDERED. PATIENT UPDATED ON CURRENT STATUS OF [facility] TRANSFER. ENDORSED TO MILL HAND.
[2019-11-22 20:00] VITALS: BP_SYST 143; BP_SYST 171; BP_DIAS 72; BP_DIAS 92
[2019-11-22] MEDS: hydrALAZINE HCL IV 20 MG VIAL IV PRN (21:31)
--- NOTE | 2019-11-22 21:31 | NUR ---
RN NOTE B/P NOTED 171/92. PRN APRESOLINE 10MG PO GIVEN ORDERED. WILL CONT TO MONITOR. ALL SAFETY MEASURES IN PLACE. Addendum: 11/23/19 at 0628 by ORA HAMMOND RN ERROR IN CHARTING APRESOLINE WAS GIVEN IV NOT PO.
[2019-11-22] MEDS: ZOLPIDEM TARTRATE 5 MG TABLET PO PRN (21:40)
--- NOTE | 2019-11-22 21:40 | NUR ---
RN NOTE PATIENT REQUESTED FOR SLEEPING PILL. PRN AMBIEN 5MG PO GIVEN ORDERED. WILL CONT TO MONITOR FOR EFFECTIVENESS.
--- NOTE | 2019-11-22 22:00 | NUR ---
RN NOTE APRESOLINE NOTED EFFECTIVE B/P NOTED 148/88.
--- NOTE | 2019-11-22 22:40 | NUR ---
RN NOTE PATIENT SLEEPING COMFORTABLY, BREATHING NORMAL NO SOB NOTED. SAFETY MEASURES IN PLACE. CALL LIGHT WITHIN REACH. MEDICATION EFFECTIVE.
--- NOTE | 2019-11-22 23:00 | NUR ---
rn notes patient is reporting of having numbness of both sided face and mouth. MD Anderson notified and new telephone order of stat head ct w/o contrast is in place.order read back and verification has been done. will continue to monitor patient closely.
[2019-11-23 04:00] VITALS: BP 128/75
--- NOTE | 2019-11-23 07:00 | NUR ---
MS RN NOTES RECEIVED PT ON THE BED. A/OX4. ON ROOM AIR WITH NO DISTRESS. LUNGS CLEAR ON AUSCULTATION.NO SOB NOTES. MERVAT PICC LINE IN PLACE AND FLUSHES WELL. LEFT ARM FISTULA IN PLACE. DR. HUGGINS NOTIFIED THAT PT IS STILL C/O NUMBNESS IN MOUTH. BED LOCKED IN THE LOWEST POSITION. CALL LIGHT WITHIN REACH. PLAN OF CARE DISCUSSED WITH PT. WILL CONT TO MONITOR
[2019-11-23 07:25] LABS: BASOPHILS % (AUTO) 0.1 % (0.0-2.0); EOSINOPHILS % (AUTO) 0.3 % (0.0-6.0); HEMATOCRIT 26 % (39-51); HEMOGLOBIN 8.4 g/dL (13.5-17.5); LYMPHOCYTES # (AUTO) 1.7 /CMM (0.8-4.8); LYMPHOCYTES % (AUTO) 12.7 % (20.0-44.0); MEAN CORPUSCULAR HGB CONC 33 g/dl (31.0-36.0); MEAN CORPUSCULAR VOLUME 81 fL (80-96); MONOCYTES # (AUTO) 1.5 /CMM (0.1-1.30); MONOCYTES % (AUTO) 11.2 % (2.0-12.0); NEUTROPHILS # (AUTO) 10.4 /CMM (1.8-8.9); NEUTROPHILS % (AUTO) 75.7 % (43.0-81.0); PLATELET COUNT (AUTO) 227 /CMM (150-450); RED BLOOD CELL COUNT(AUTO) 3.17 MIL/uL (4.5-6.0); WHITE BLOOD COUNT (AUTO) 13.7 K/uL (4.3-11.0)
[2019-11-23 07:38] LABS: CALCIUM, SERUM 8.7 mg/dL (8.5-10.1); MAGNESIUM 2.2 mg/dL (1.8-2.4); POTASSIUM 5.2 mmol/L (3.5-5.1)
[2019-11-23 08:00] VITALS: BP_SYST 150; BP_DIAS 86; BP_DIAS 88
[2019-11-23 08:23] LABS: CREATININE 12.9 mg/dL (0.6-1.3)
[2019-11-23 08:24] LABS: PHOSPHORUS 8.3 mg/dL (2.5-4.9)
[2019-11-23] MEDS: PROGRAF 1 MG PO SCH ×2 (08:45→21:42)
[2019-11-23] MEDS: DILTIAZEM HCL CD 120 MG PO SCH (08:47)
[2019-11-23] MEDS: AMLODIPINE BESYLATE 5 MG TABLET PO SCH (08:48)
--- NOTE | 2019-11-23 09:20 | NUR ---
ms rn note dr pal aware hl that patent c\o numbers in mouth also ok to hold biopsy and aware that [id number] creat 12.9
[2019-11-23 09:38] LABS: APPEARANCE,URINE CLEAR (CLEAR); BILIRUBIN,URINE NEGATIVE (NEGATIVE); BLOOD, URINE LARGE Ery/uL (NEGATIVE); KETONES,URINE NEGATIVE (NEGATIVE); LEUKOCYTE ESTERASE ,URINE SMALL (NEGATIVE); NITRITE, URINE NEGATIVE (NEGATIVE); PROTEIN,URINE 100 mg/dl (NEGATIVE); UGLUCOSE 100 MG/DL mg/dL (NEGATIVE); UROBILINOGEN,URINE 0.2 EU/dL (0.2)
[2019-11-23 09:39] LABS: COLOR,URINE STRAW (YELLOW)
--- NOTE | 2019-11-23 10:47 | NUR ---
MS RN NOTE AWAITING FOR BED FROM [facility] SPOKE WITH SAMANTHA SHELBY FROM [facility] WILL F\U
--- NOTE | 2019-11-23 11:40 | NUR ---
MS RN NOTE ON HD AT THIS TIME
[2019-11-23 12:04] LABS: BACTERIA,URINE Rare /HPF (None Seen); SQUAMOUS EPITHELIAL CELL,UR 0-2 /HPF (None Seen)
[2019-11-23 12:20] VITALS: BP 167/80
--- NOTE | 2019-11-23 13:46 | NUR ---
MS RN NOTE HD COMPETED 3L OF FLUIDS OUT
--- NOTE | 2019-11-23 14:48 | NUR ---
MS RN NOTES DNP CESIA AT THE BEDSIDE. NO NEW ORDERS. D/C PENDING. CALL LIGHT WITHIN REACH
[2019-11-23 17:01] VITALS: BP 137/71
--- NOTE | 2019-11-23 17:21 | NUR ---
MS RN NOTE NO BED AVAILABLE FROM [facility]
--- NOTE | 2019-11-23 18:08 | NUR ---
MS RN NOTES HI IN BED RESTING COMFORTABLY. NO DINNER AT THIS TIME
--- NOTE | 2019-11-23 18:41 | NUR ---
MS RN NOTE ALL NEEDS ATTENDED, NO C\O PAIN OR DISCOMFORT, NOT IN DISTRESS ,WILL CONT TO MONITOR PER DURALUMIN MECHANIC NO BED AVAILABLE AT [facility]
--- NOTE | 2019-11-23 19:15 | NUR ---
RN OPENING NOTES RECEIVED PATIENT AWAKE IN BED. A/OX4. NO SIGNS OF DISTRESS OR DISCOMFORT. BREATHING EVEN AND UNLABORED. HAS MERVAT PICC PATENT AND INTACT, L FEMORAL HD CATH AND LLA FISTULA INTACT. BED IN LOW LOCKED POSITION WITH SIDE RAILS X2. CALL LIGHT WITHIN REACH. WILL CONTINUE TO MONITOR.
[2019-11-23 20:00] VITALS: BP 143/72
--- NOTE | 2019-11-24 01:30 | NUR ---
RN CLOSING NOTES PATIENT DISCHARGED TO [facility] VIA EMT IN STABLE CONDITION. NO SIGNS OF DISTRESS OR DISCOMFORT. BREATHING EVEN AND UNLABORED. PATIENT ADVISED TO FOLLOW UP WITH PRIMARY CARE PHYSICIAN. PATIENT VERBALIZE UNDERSTANDING OF DISCHARGE EDUCATION AND INSTRUCTIONS. NO SKIN ISSUES NOTED. WRIST BAND REMOVED. PATIENT BELONGINGS ALONGSIDE PATIENT. ALL DUE MEDS GIVEN. PATIENT INFORMED TO HAVE FAMILY RECREATION PROFESSOR MEDICATION FROM PHARMACY IN AM. REPORT GIVEN TO KEN SHELBY @ [phone]. PATIENT WILL BE GOING TO [address] BED 8145. CHARGE NURSE AND NURSING ENVIRONMENTAL LEAD AWARE.
== END 2019-11-24 03:05 | disposition short-term general hospital (02) | DRG 466 ==
LOC: ER 13:45 → ICU 19:51 → TELE1 11-17 21:31 → MEDSG1 11-18 11:30
PROVIDERS: ADMIT Student in an Organized Health Care Education/Training Program; ATTEND Nurse Practitioner Acute Care
PROC: 06HY33Z Insertion of Infusion Device into Lower Vein, Percutaneous Approach (ICD-10-PCS; principal; 2019-11-15)
PROC: 5A1D70Z Performance of Urinary Filtration, Intermittent, Less than 6 Hours Per Day (ICD-10-PCS; principal; 2019-11-15)
PROC: 02HV33Z Insertion of Infusion Device into Superior Vena Cava, Percutaneous Approach (ICD-10-PCS; 2019-11-16)
PROC: B548ZZA Ultrasonography of Superior Vena Cava, Guidance (ICD-10-PCS; 2019-11-16)
DX: T86.11 Kidney transplant rejection (principal); N17.0 Acute kidney failure with tubular necrosis; E83.39 Other disorders of phosphorus metabolism; E87.2 Acidosis; E87.1 Hypo-osmolality and hyponatremia; I16.0 Hypertensive urgency; N18.9 Chronic kidney disease, unspecified; I12.9 Hypertensive chronic kidney disease with stage 1 through stage 4 chronic kidney disease, or unspecified chronic kidney disease; D63.8 Anemia in other chronic diseases classified elsewhere; Y83.0 Surgical operation with transplant of whole organ as the cause of abnormal reaction of the patient, or of later complication, without mention of misadventure at the time of the procedure; Z91.19 Patient's noncompliance with other medical treatment and regimen; E87.5 Hyperkalemia; E87.70 Fluid overload, unspecified; Y92.009 Unspecified place in unspecified non-institutional (private) residence as the place of occurrence of the external cause
CPT/HCPCS: 36415; 36600; 70450-TC; 71045-TC; 80048-TC; 80053-TC; 80061-TC; 81000-TC; 83735-TC; 84100-TC; 84443-TC; 85025-TC; 85730-TC; 86706; 87040-TC; 87081-TC; 87086-TC; 87340; 90935-TC; C1750; C1751; G0378; J0360; J1644; J2150; J2930; J3490; J7030; J7050; J7060; J7070; J7507; Q0162